=== PATIENT | male | born 1940 | race Caucasian/White ===

== ENCOUNTER 2017-07-27 12:09 | Observation (INO) | payer MEDICARE ==
[~2017-07-27] VITALS: Ht 185.4 cm; Wt 86.6 kg
[~2017-07-27 12:09] MED LIST: ACCUPRIL5 MG; BUPROPION150 MG PO; DOXYCYC MONO100 M1 PO; LEVAQUIN750 MG PO; PRILOSEC20 MG PO; PROBIOTI2; SAW PALMETTO1 CAP
--- NOTE | 2017-07-27 12:15 | NUR ---
PT TO ROOM 8 VIA WC.
--- NOTE | 2017-07-27 13:05 | NUR ---
MD AT BEDSIDE FOR EXAM, TOLERATED WELL. PLAN OF CARE DISCUSSED, VERBAL UNDERSTANDING. CALL LIGHT PLACED WITHIN REACH, VISITOR AT BEDSIDE. WILL CONTINUE TO MONITOR.
[2017-07-27 13:27] LABS: HEMATOCRIT 42.5 % (39.0-50.0); HEMOGLOBIN 14.6 g/dl (14.0-18.0); IMMATURE GRANULOCYTES 0.4 % (0.0-1.0); MEAN CELL VOLUME 88.4 fL CALC (80.0-100.0); MEAN CORPUSCULAR HGB 30.4 pG CALC (26.0-32.0); MEAN CORPUSCULAR HGB CONC 34.4 g/L CALC (32.0-36.0); NEUT# 15.58 thou/uL (1.82-7.42); RED BLOOD COUNT 4.81 mill/uL (4.70-6.10); RED CELL DISTRI WIDTH 13.8 % (11.5-15.5)
[2017-07-27 14:02] LABS: ALBUMIN 4.6 g/dL (3.2-5.0); ALKALINE PHOSPHATASE 96 u/l (38-126); AMYLASE 48 u/l (30-110); ANION GAP 16 (6-22 (CALC)); BILIRUBIN, TOTAL 0.4 mg/dL (0.0-1.4); BUN 17 mg/dL (8-23); BUN/CREATININE RATIO 12 (12-20 (CALC)); CARBON DIOXIDE 24 mmol/l (22-30); CHLORIDE 105 mmol/l (95-108); CREATININE 1.4 mg/dL (0.7-1.3); GFR 50 ML/MIN (>=60 (CALC)); GFR FOR AFR.AMER. 60 ML/MIN (>=60 (CALC)); GLUCOSE 108 mg/dL (82-115); LIPASE 64 u/l (23-300); POTASSIUM 4.8 mmol/l (3.5-5.1); SGOT/AST 25 u/l (19-48); SGPT/ALT 33 u/l (11-66); SODIUM 140 mmol/l (137-146); TOTAL PROTEIN 7.4 g/dL (6.3-8.2)
[2017-07-27 14:14] LABS: MYOGLOBIN 78 ng/mL (0 - 121)
--- NOTE | 2017-07-27 14:57 | NUR ---
PATIENT RESTING ON STRETCHER ALERT AND ORIENTED X3. REPORTS PAIN TO ABD 7/10. REFUSED ANY PAIN MEDS WHEN OFFERED. STATES "I DONT LIKE TO TAKE ANYTHING FOR PAIN." WARM BLANKET PROVIDED. CALL LIGHT WITHIN REACH, WILL COTNINUE TO MONITOR.
--- NOTE | 2017-07-27 15:35 | NUR ---
MD AT BEDSIDE TO ATTEMPT ENRIQUEZ CATH PLACEMENT AFTER X2 NURSE UNSUCCESSFUL ATTEMPTS. MD NOT ABLE TO PLACE ENRIQUEZ CATH. PATIENT MEDICATED WITH UROJETS X2 FOR PROCEDURE.
--- NOTE | 2017-07-27 16:55 | NUR ---
PATIENT HAD LARGE BM AT THIS TIME. UNABLE TO PRODUCE ANY URINE, REPORTS BLOODY DISCHARGED FROM PENIS. MD INFORMED.
--- NOTE | 2017-07-27 17:21 | NUR ---
REPORT GIVEN TO JULIO JOHNSON.
--- NOTE | 2017-07-27 17:50 | NUR ---
PT ARRIVED TO FLOOR VIA STRETCHER ACCOMPANIED BY ED STAFF. PT AMBULATES INDEPENDENTLY. STEADY GAIT. PT ORIENTED TO ROOM AND EQUIPMENT. PLAN OF CARE DISCUSSED. REPORTING OF CONCERNS ENCOURAGED. CALL LIGHT REVIEWED AND IN REACH. PT STATES UNDERSTANDING.
--- NOTE | 2017-07-27 17:55 | NUR ---
PATIENT TRANSPORTED TO [facility] VIA WHEELCHAIR. CARE RELINQUISHED TO JULIO JOHNSON.
[2017-07-27 18:05] VITALS: BP 156/67
[2017-07-27 19:05] VITALS: BP 118/59
--- NOTE | 2017-07-27 19:30 | NUR ---
PT RESTING IN BED WITH FAMILY AT BEDSIDE. PT DENIES ANY PAIN OR DISCOMFORT. RESP EVEN AND UNLABORED. NO DISTRESS NOTED. LUNGS CLEAR BILAT. ABD DISTENDED; SOFT. BOWEL SOUNDS PRESENT. PEDAL PULSES PALPATED BILAT. IV RAC FLUSHED WITHOUT DIFFICULTY. PT ENCOURAGED TO CALL FOR ASSISTANCE. FREQUENT ROUNDS MADE. SAFETY PRECAUTIONS REINFORCED. CALL LIGHT WITHIN REACH. PT STATES HAS BEEN HAVING BOWEL MOVEMENTS AND VOIDING.
[2017-07-27 22:23] LABS: URINE BILIRUBIN - DIPSTICK NEGATIVE (NEGATIVE); URINE BLOOD DIPSTICK LARGE (NEGATIVE); URINE GLUCOSE - DIPSTICK NEGATIVE (NEGATIVE); URINE KETONE 15 mg/dL (NEGATIVE); URINE LEUK ESTERASE NEGATIVE (Negative); URINE NITRITE - DIPSTICK NEGATIVE (Negative); URINE PH 6.5 (4.5-8.0); URINE PROTEIN - DIPSTICK TRACE mg/dL (NEG-TRACE); URINE SPECIFIC GRAVITY 1.015
[2017-07-27 22:24] LABS: URINE CLARITY CLOUDY; URINE COLOR DK. YELLOW; URINE RBC TNTC RBC/hpf (0-5); URINE SQUAMOUS EPITHELIAL CELL FEW EPI/hpf (0-FEW)
--- NOTE | 2017-07-28 00:10 | NUR ---
PT UP TO BATHROOM STATES BM x3. PT STATES VOIDING WITHOUT DIFFICULTY. PT INSTRUCTED TO USE URINAL FOR ACCURATE I & O'S. PT DENIES ANY PAIN OR DISCOMFORT. PT STATES " I AM HAVING BM'S I DON'T NEED ENEMA". CALL LIGHT WITHIN REACH.
--- NOTE | 2017-07-28 04:00 | NUR ---
RESP EVEN AND UNLABORED; NO DISTRESS NOTED. ASSESSMENT UNCHANGED. CALL LIGHT WITHIN REACH.
[2017-07-28 05:17] VITALS: BP 107/53
[2017-07-28 05:22] LABS: HEMOGLOBIN 13.3 g/dl (14.0-18.0); IMMATURE GRANULOCYTES 0.2 % (0.0-1.0); MEAN CELL VOLUME 88.2 fL CALC (80.0-100.0); MEAN CORPUSCULAR HGB 30.1 pG CALC (26.0-32.0); MEAN CORPUSCULAR HGB CONC 34.1 g/L CALC (32.0-36.0); NEUT# 5.1 thou/uL (1.82-7.42); RED BLOOD COUNT 4.42 mill/uL (4.70-6.10); RED CELL DISTRI WIDTH 13.9 % (11.5-15.5)
[2017-07-28 05:43] LABS: ANION GAP 6 (6-22 (CALC)); BUN 13 mg/dL (8-23); BUN/CREATININE RATIO 11 (12-20 (CALC)); CALCIUM 9.1 mg/dL (8.4-10.2); CARBON DIOXIDE 24 mmol/l (22-30); CHLORIDE 110 mmol/l (95-108); CREATININE 1.2 mg/dL (0.7-1.3); GFR 59 ML/MIN (>=60 (CALC)); GFR FOR AFR.AMER. > 60 ML/MIN (>=60 (CALC)); GLUCOSE 92 mg/dL (82-115); POTASSIUM 4.8 mmol/l (3.5-5.1); SODIUM 135 mmol/l (137-146)
[2017-07-28 07:22] VITALS: BP 108/61
--- NOTE | 2017-07-28 07:26 | NUR ---
REPORT RECEIVED FROM JOSEPH SAINI. PT SUPINE IN BED. DENIES PAIN. REPORTS "I FEEL SO MUCH BETTER." REPORTING OF CONCERNS ENCOURAGED. CALL LIGHT REVIEWED AND IN REACH. PT STATES ANTICIPATION OF DISCHARGE. DISCHARGE PROCESS REVIEWED. PT STATES UNDERSTADNING.
[2017-07-28] MEDS ORDERED: DOCUSATE CAL240 MG PO (10:35)
--- NOTE | 2017-07-28 10:47 | NUR ---
Discharge instructions given. Patient verbalizes understanding of same. Discharged in stable condition via Ambulatory to Home with family. All belongings sent with pt.
== END 2017-07-28 10:41 | disposition home or self-care (01) ==
LOC: ED 12:09 → ED-I 16:06 → ED 16:21 → MS2 16:22
PROVIDERS: Emergency Medicine; ADMIT Internal Medicine; ATTEND Internal Medicine
DX: K56.41 Fecal impaction (principal); K21.9 Gastro-esophageal reflux disease without esophagitis; F32.9 Major depressive disorder, single episode, unspecified; F41.9 Anxiety disorder, unspecified; D72.828 Other elevated white blood cell count; R33.8 Other retention of urine
CPT/HCPCS: Q9967

== ENCOUNTER 2017-11-01 06:30 | Day surgery (SDC) | payer MEDICARE ==
[~2017-11-01 06:30] MED LIST changes: +ANACIN 400-32 M1 TAB PO; +DOCUSATE CAL240 MG PO; +EQL IBUPROFEN200 MG PO; -PROBIOTI2; +PROBIOTI2 PO; -SAW PALMETTO1 CAP; +SAW PALMETTO1 CAP PO
[2017-11-01 09:05] VITALS: BP 123/68
== END 2017-11-01 09:12 | disposition home or self-care (01) ==
LOC: ENDO 06:30 → ORM 13:15 → ENDO 13:15
PROVIDERS: ATTEND Internal Medicine Gastroenterology
PROC: 0DBG8ZX Excision of Left Large Intestine, Via Natural or Artificial Opening Endoscopic, Diagnostic (ICD-10-PCS; principal; 2017-11-01)
PROC: 0DBL8ZX Excision of Transverse Colon, Via Natural or Artificial Opening Endoscopic, Diagnostic (ICD-10-PCS; 2017-11-01)
PROC: 0DBP8ZX Excision of Rectum, Via Natural or Artificial Opening Endoscopic, Diagnostic (ICD-10-PCS; 2017-11-01)
PROC: 0DBF8ZX Excision of Right Large Intestine, Via Natural or Artificial Opening Endoscopic, Diagnostic (ICD-10-PCS; 2017-11-01)
DX: R19.4 Change in bowel habit (principal); K51.90 Ulcerative colitis, unspecified, without complications; K21.9 Gastro-esophageal reflux disease without esophagitis; K57.30 Diverticulosis of large intestine without perforation or abscess without bleeding; K64.4 Residual hemorrhoidal skin tags; K64.8 Other hemorrhoids; Z79.899 Other long term (current) drug therapy

== ENCOUNTER 2018-04-10 15:44 | Emergency (ER) | payer MEDICARE ==
[~2018-04-10] VITALS: Ht 185.4 cm; Wt 81.8 kg
[2018-04-10 16:08] LABS: HEMATOCRIT 41.8 % (39.0-50.0); HEMOGLOBIN 14.4 g/dl (14.0-18.0); IMMATURE GRANULOCYTES 0.3 % (0.0-5.0); MEAN CELL VOLUME 88.4 fL CALC (80.0-100.0); MEAN CORPUSCULAR HGB 30.4 pG CALC (26.0-32.0); MEAN CORPUSCULAR HGB CONC 34.4 g/L CALC (32.0-36.0); NEUT# 7.84 thou/uL (1.82-7.42); RED BLOOD COUNT 4.73 mill/uL (4.70-6.10); RED CELL DISTRI WIDTH 13.6 % (11.5-15.5)
[2018-04-10 16:25] LABS: ALKALINE PHOSPHATASE 72 u/l (38-126); ANION GAP 13 (6-22 (CALC)); BILIRUBIN, TOTAL 0.5 mg/dL (0.0-1.4); BUN 15 mg/dL (8-23); BUN/CREATININE RATIO 15 (12-20 (CALC)); CARBON DIOXIDE 23 mmol/l (22-30); CHLORIDE 107 mmol/l (95-108); GFR > 60 ML/MIN (>=60 (CALC)); GFR FOR AFR.AMER. > 60 ML/MIN (>=60 (CALC)); POTASSIUM 4.5 mmol/l (3.5-5.1); SGOT/AST 25 u/l (19-48); SODIUM 139 mmol/l (137-146); TOTAL PROTEIN 7.1 g/dL (6.3-8.2)
[2018-04-10 16:37] LABS: MYOGLOBIN 44 ng/mL (0 - 121)
[2018-04-10] MEDS ORDERED: LEVAQUIN750 MG PO (17:49)
[2018-04-10] MEDS ORDERED: PROVENTIL HFA IN (17:49)
[2018-04-10] MEDS ORDERED: DELTASONE20 MG PO (17:49)
[2018-04-10 17:52] VITALS: BP 150/75
== END 2018-04-10 18:07 | disposition home or self-care (01) ==
LOC: ED 15:44
PROVIDERS: Emergency Medicine
DX: J18.9 Pneumonia, unspecified organism (principal); R09.1 Pleurisy
CPT/HCPCS: Q9967

== ENCOUNTER → 2018-08-13 | Outpatient (REF) | payer MEDICARE ==
[~2018-08-13] VITALS: Ht 185.4 cm; Wt 87.1 kg
[~2018-08-13] MED LIST changes: +DELTASONE20 MG PO; +IBUPROFEN600 MG PO; +MULTIVITAMIN AD1 TA1 PO; +PERCOCET 5/325M1 TAB PO; +PROVENTIL HFA IN
[2018-08-13 09:50] VITALS: BP 134/84
== END | disposition home or self-care (01) ==
LOC: ORM 08:00 → PO 08:17
PROVIDERS: ATTEND Surgery
DX: Z01.818 Encounter for other preprocedural examination (principal); K40.90 Unilateral inguinal hernia, without obstruction or gangrene, not specified as recurrent; K21.9 Gastro-esophageal reflux disease without esophagitis; Z96.22 Myringotomy tube(s) status; Z98.890 Other specified postprocedural states; Z97.2 Presence of dental prosthetic device (complete) (partial); R14.0 Abdominal distension (gaseous)

== ENCOUNTER 2018-08-27 06:05 | Day surgery (SDC) | payer MEDICARE ==
[~2018-08-27] VITALS: Ht 185.4 cm; Wt 88.5 kg
[~2018-08-27 06:05] MED LIST changes: -IBUPROFEN600 MG PO; -PERCOCET 5/325M1 TAB PO
[2018-08-27 09:44] VITALS: BP 128/58
[2018-08-27] MEDS ORDERED: PERCOCET 5/325M1 TAB PO (09:50)
[2018-08-27] MEDS ORDERED: IBUPROFEN600 MG PO (09:50)
== END 2018-08-27 10:30 | disposition home or self-care (01) ==
LOC: ORM 06:05
PROVIDERS: ATTEND Surgery
PROC: 0YU50JZ Supplement Right Inguinal Region with Synthetic Substitute, Open Approach (ICD-10-PCS; principal; 2018-08-27)
DX: K40.90 Unilateral inguinal hernia, without obstruction or gangrene, not specified as recurrent (principal)
CPT/HCPCS: C9290; J0131

== ENCOUNTER 2023-08-14 08:33 | Inpatient (IN) | payer MEDICARE ==
[~2023-08-14] VITALS: Ht 185.4 cm; Wt 83.0 kg
[2023-08-14] VITALS (28 sets, daily range): BP systolic 87–190; BP diastolic 43–155
[~2023-08-14 08:33] MED LIST changes: +IBUPROFEN600 MG PO; +PERCOCET 5/325M1 TAB PO
[2023-08-14 09:11] LABS: BASO% 0.4 % (0-3); EOS% 0.5 % (0-8); HEMATOCRIT 43.4 % (39.0-50.0); HEMOGLOBIN 14.6 g/dl (14.0-18.0); IMMATURE GRANULOCYTES 0.1 % (0.0-5.0); LYMPH% 15.8 % (15-41); MEAN CORPUSCULAR HGB 30.3 pG CALC (26.0-32.0); MEAN CORPUSCULAR HGB CONC 33.6 g/dL CAL (32.0-36.0); NEUT# 6.72 thou/uL (1.82-7.42); NEUT% 72.2 % (42-76); RED BLOOD COUNT 4.82 mill/uL (4.70-6.10); RED CELL DISTRI WIDTH 13.7 % (11.5-15.5)
[2023-08-14 09:57] LABS: ALBUMIN 4.3 g/dL (3.2-5.0); ALKALINE PHOSPHATASE 93 u/l (38-126); ANION GAP 13 (6-22 (CALC)); BILIRUBIN, TOTAL 0.6 mg/dL (0.2-1.3); BUN 18 mg/dL (8-23); BUN/CREATININE RATIO 16 (12-20 (CALC)); CALCULATED LDLCHOLESTEROL 128 mg/dL (62-129 (CALC)); CARBON DIOXIDE 24 mmol/l (22-30); CHLORIDE 105 mmol/l (95-108); CHOLESTEROL HDL RATIO 3.4 (<4.4 (CALC)); CREATININE 1.2 mg/dL (0.7-1.3); GFR FOR AFR.AMER. > 60 ML/MIN (>=60 (CALC)); GFR OTHER RACES 58 ML/MIN (>=60 (CALC)); HDL CHOLESTEROL 60 mg/dL (39.0-59.0); POTASSIUM 4.4 mmol/l (3.5-5.1); SGOT/AST 34 u/l (19-48); SODIUM 137 mmol/l (137-146); TOTAL CHOLESTEROL 203 mg/dl (0-199); TOTAL PROTEIN 7.1 g/dL (6.3-8.2); TOTAL TRIGLYCERIDES 76 mg/dl (0-149); VLDL CHOLESTROL 15 mg/dl (0-38 (CALC))
[2023-08-14] MEDS ORDERED: EMERGEN C VITAM (10:42)
[2023-08-14] MEDS ORDERED: VITAMIN D-32000 UNI1 (10:42)
[2023-08-14] MEDS ORDERED: MUCINEX600 MG PO (10:42)
[2023-08-14] MEDS ORDERED: ASPIRIN 81 MG/TAB PO ONE (10:45)
[2023-08-14 11:38] LABS: URINE BILIRUBIN - DIPSTICK Negative (NEGATIVE); URINE BLOOD DIPSTICK Moderate (NEGATIVE); URINE GLUCOSE - DIPSTICK Negative (NEGATIVE); URINE KETONE Negative (NEGATIVE); URINE LEUK ESTERASE Negative (NEGATIVE); URINE NITRITE - DIPSTICK Negative (Negative); URINE PROTEIN - DIPSTICK Negative (NEG-TRACE); URINE UROBILINOGEN - DIPSTICK 0.2 E.U./dL (0.2)
[2023-08-14 11:45] LABS: URINE COLOR Yellow
[2023-08-14] MEDS ORDERED: DEXTROSE 250 ML IV PRN (12:15)
[2023-08-14] MEDS ORDERED: MAGNESIUM HYDROXIDE 30 ML UDC PO PRN (12:15)
[2023-08-14] MEDS ORDERED: ACETAMINOPHEN 325 MG/TAB PO PRN (12:15)
[2023-08-14] MEDS ORDERED: SODIUM CHLORIDE 0.9% 1,000 ML IV PRN (12:15)
[2023-08-14] MEDS ORDERED: LABETALOL HCL 20 MG/ 4 ML CARTRG IV PRN (14:50)
[2023-08-14] MEDS ORDERED: buPROPion HCL 150 MG TAB SR PO SCH (15:00)
[2023-08-14] MEDS ORDERED: ENOXAPARIN SODIUM 40 MG/0.4 ML SYR SC SCH (21:00)
[2023-08-14] MEDS ORDERED: ATORVASTATIN CALCIUM 40 MG/TAB PO SCH (21:00)
[2023-08-15 00:16] VITALS: BP 108/57
[2023-08-15 04:34] VITALS: BP 132/76
[2023-08-15 05:08] LABS: BASO% 0.9 % (0-3); EOS% 1.1 % (0-8); HEMATOCRIT 41.3 % (39.0-50.0); HEMOGLOBIN 14.1 g/dl (14.0-18.0); IMMATURE GRANULOCYTES 0.2 % (0.0-5.0); LYMPH% 24.2 % (15-41); MEAN CELL VOLUME 89.2 fL CALC (80.0-100.0); MEAN CORPUSCULAR HGB 30.5 pG CALC (26.0-32.0); MEAN CORPUSCULAR HGB CONC 34.1 g/dL CAL (32.0-36.0); MONO% 17.2 % (2-13); NEUT# 3.62 thou/uL (1.82-7.42); NEUT% 56.4 % (42-76); RED BLOOD COUNT 4.63 mill/uL (4.70-6.10); RED CELL DISTRI WIDTH 13.7 % (11.5-15.5)
[2023-08-15 05:24] LABS: ALBUMIN 3.7 g/dL (3.2-5.0); ALKALINE PHOSPHATASE 85 u/l (38-126); ANION GAP 11 (6-22 (CALC)); BILIRUBIN, TOTAL 0.6 mg/dL (0.2-1.3); BUN 19 mg/dL (8-23); BUN/CREATININE RATIO 16 (12-20 (CALC)); CARBON DIOXIDE 24 mmol/l (22-30); CHLORIDE 107 mmol/l (95-108); CREATININE 1.2 mg/dL (0.7-1.3); GFR FOR AFR.AMER. > 60 ML/MIN (>=60 (CALC)); GFR OTHER RACES 58 ML/MIN (>=60 (CALC)); MAGNESIUM 1.8 mg/dL (1.6-2.3); POTASSIUM 4.2 mmol/l (3.5-5.1); SGOT/AST 39 u/l (19-48); SODIUM 137 mmol/l (137-146); TOTAL PROTEIN 6.3 g/dL (6.3-8.2)
[2023-08-15 06:39] VITALS: BP 124/79
[2023-08-15] MEDS ORDERED: ASPIRIN 81 MG/TAB PO SCH (09:00)
[2023-08-15 10:46] VITALS: BP 129/48
[2023-08-15] MEDS ORDERED: MAGNESIUM SULFATE HEPTAHYDRATE 50 ML IV SCH (14:00)
[2023-08-15 19:40] VITALS: BP 111/43
[2023-08-16] VITALS (9 sets, daily range): BP systolic 107–150; BP diastolic 42–75
[2023-08-16 06:05] LABS: BASO% 0.7 % (0-3); EOS% 2.7 % (0-8); HEMATOCRIT 39.1 % (39.0-50.0); HEMOGLOBIN 13.1 g/dl (14.0-18.0); IMMATURE GRANULOCYTES 0.3 % (0.0-5.0); LYMPH% 32.2 % (15-41); MEAN CELL VOLUME 88.9 fL CALC (80.0-100.0); MEAN CORPUSCULAR HGB 29.8 pG CALC (26.0-32.0); MEAN CORPUSCULAR HGB CONC 33.5 g/dL CAL (32.0-36.0); MONO% 15.7 % (2-13); NEUT# 2.91 thou/uL (1.82-7.42); NEUT% 48.4 % (42-76); RED BLOOD COUNT 4.4 mill/uL (4.70-6.10); RED CELL DISTRI WIDTH 13.4 % (11.5-15.5)
[2023-08-16 06:17] LABS: ALBUMIN 3.2 g/dL (3.2-5.0); ALKALINE PHOSPHATASE 78 u/l (38-126); ANION GAP 10 (6-22 (CALC)); BUN 17 mg/dL (8-23); BUN/CREATININE RATIO 18 (12-20 (CALC)); CARBON DIOXIDE 20 mmol/l (22-30); CHLORIDE 111 mmol/l (95-108); GFR FOR AFR.AMER. > 60 ML/MIN (>=60 (CALC)); GFR OTHER RACES > 60 ML/MIN (>=60 (CALC)); POTASSIUM 4.1 mmol/l (3.5-5.1); SGOT/AST 36 u/l (19-48); SODIUM 136 mmol/l (137-146); TOTAL PROTEIN 5.7 g/dL (6.3-8.2)
[2023-08-16 06:24] LABS: BILIRUBIN, TOTAL 0.3 mg/dL (0.2-1.3)
[2023-08-17 03:55] VITALS: BP 155/71
[2023-08-17 06:46] LABS: BASO% 1.1 % (0-3); EOS% 3.2 % (0-8); HEMATOCRIT 40.8 % (39.0-50.0); HEMOGLOBIN 14.1 g/dl (14.0-18.0); IMMATURE GRANULOCYTES 0.2 % (0.0-5.0); LYMPH% 32.4 % (15-41); MEAN CELL VOLUME 87.4 fL CALC (80.0-100.0); MEAN CORPUSCULAR HGB 30.2 pG CALC (26.0-32.0); MEAN CORPUSCULAR HGB CONC 34.6 g/dL CAL (32.0-36.0); MONO% 10.8 % (2-13); NEUT# 3.31 thou/uL (1.82-7.42); NEUT% 52.3 % (42-76); RED BLOOD COUNT 4.67 mill/uL (4.70-6.10); RED CELL DISTRI WIDTH 13.4 % (11.5-15.5)
[2023-08-17 07:01] LABS: ALBUMIN 3.7 g/dL (3.2-5.0); ALKALINE PHOSPHATASE 86 u/l (38-126); ANION GAP 12 (6-22 (CALC)); BILIRUBIN, TOTAL 0.4 mg/dL (0.2-1.3); BUN 13 mg/dL (8-23); BUN/CREATININE RATIO 15 (12-20 (CALC)); CARBON DIOXIDE 22 mmol/l (22-30); CHLORIDE 110 mmol/l (95-108); CREATININE 0.9 mg/dL (0.7-1.3); GFR FOR AFR.AMER. > 60 ML/MIN (>=60 (CALC)); GFR OTHER RACES > 60 ML/MIN (>=60 (CALC)); MAGNESIUM 1.7 mg/dL (1.6-2.3); POTASSIUM 4.4 mmol/l (3.5-5.1); SGOT/AST 36 u/l (19-48); SODIUM 139 mmol/l (137-146); TOTAL PROTEIN 6.4 g/dL (6.3-8.2)
[2023-08-17 07:10] VITALS: BP 168/81
[2023-08-17] MEDS ORDERED: ASPIRIN81 MG PO (10:46)
[2023-08-17] MEDS ORDERED: ATORVASTATIN CA40 MG PO (10:47)
== END 2023-08-17 11:48 | DRG 64 ==
LOC: ED 08:33 → ED-I 10:55 → ED 10:55 → MS2 10:56
PROVIDERS: Emergency Medicine; Student in an Organized Health Care Education/Training Program; ADMIT Student in an Organized Health Care Education/Training Program; ATTEND Student in an Organized Health Care Education/Training Program
DX: I63.512 Cerebral infarction due to unspecified occlusion or stenosis of left middle cerebral artery (principal); U07.1 COVID-19; R47.01 Aphasia; R29.704 NIHSS score 4; K21.9 Gastro-esophageal reflux disease without esophagitis; F32.A Depression, unspecified; F41.9 Anxiety disorder, unspecified; Z87.19 Personal history of other diseases of the digestive system
CPT/HCPCS: J1650; J3475; Q9967